=== PATIENT | male | born 1980 | race Hispanic/Latino ===

== ENCOUNTER 2019-06-23 19:46 | Observation (INO) | payer BC, SELFPAY ==
--- NOTE | 2019-06-23 21:09 | PDOC.FPRHP ---
- History of Present Illness Chief Complaint: Chest Pain History of Present Illness: Mark Caal is a 38 yo direct admit with PMH significant for HTN, DM, HLD, and no history of cardiac workup presented to the ED with chest pain on exertion. He states it did not alleviate through the day so he came in for evaluation. Patient reports chest pain is located substernally with radiation to left arm. Comes and goes. Last seconds to minutes. Has occurred with activity, rest, and while eating today. Pressure-type pain. Not reproducible to the same extent with palpation to chest. Had a similar episode in the past but was told it was stress related. Pain initially started at work today. 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 Associated symptoms include fatigue, SOB, dizziness , nausea, headache, and sweating (but patient not sure if this was in relation to his working conditions). Patient also reports abdominal pain and diarrhea recently since restarting metformin. Friend in room reports he has been complaining of not feeling good all week with high sugars and blurring vision. Initially was seen at outside facility on Thursday due to hyperglycemia and dehydration. Patient has been off insulin due to his rx running out. At urgent care visit thursday provided with medications for HTN, HLD, and DM since he is currently without a physician. No prior hospitalizations. ED Course: ED: Transdermal nitro, full ASA, 1L NS In the ED the intial trops were negative, EKG did not reveal STEMI but showed non-specific changes and sinus tach. Asp, nitro paste were initiated which resolved the pain. Heart score was noted at 3. - Allergies/Adverse Reactions Allergies Allergy/AdvReac Type Severity Reaction Status Date / Time No Known Allergies Allergy Verified 06/23/19 21:32 - Home Medications Medication Instructions Recorded Confirmed Type Atorvastatin Calcium 40 mg PO DAILY 06/23/19 06/23/19 History Lisinopril 10 mg PO DAILY 06/23/19 06/23/19 History glipiZIDE [Glipizide] 10 mg PO BID 06/23/19 06/23/19 History metFORMIN HCl [Metformin HCl] 1,000 mg PO BID 06/23/19 06/23/19 History - History PMHx: HTN, DM, HLD PSHx: None FHx: Mother: DM. Father: Parkinson's disease Social: Denies tobacco currently (former smoker, 1ppd x 18 years, stopped 2 years ago), alcohol, and drug use. - Review of Systems General: reports: fatigue. denies: fever/chills, weight/appetite/sleep changes Eyes: reports: vision changes. denies: eye pain ENT: denies: nasal congestion, rhinorrhea Respiratory: reports: shortness of breath, exercise intolerance. denies: cough , congestion Cardiovascular: reports: chest pain, edema. denies: palpitation Gastrointestinal: reports: nausea, diarrhea Skin: denies: lesions Musculoskeletal: reports: swelling Neurological: reports: weakness, other (Headache) - Vital signs HR: 103, BP: 128/87, 97% on RA -initial BP 159/100, HR 120 - Physical Exam Constitutional: NAD, awake, alert and oriented, well developed HEENT: normocephalic and atraumatic, EOMI Neck: supple, no JVD Chest: no-tender to palpation Heart: RRR, normal S1/S2, no murmurs/rubs/gallops, pulses present, no edema Lungs: CTAB, no respiratory distress, good air movement, no rales/rhonchi, no wheezing Abdomen: soft, non-tender, bowel sounds present Musculoskeletal: normal structure, normal tone, ROM grossly normal Neurological: no focal deficit Skin: no rash/lesions, capillary refill <2 seconds, no jaundice Heme/Lymphatic: no unusual bruising or bleeding Psychiatric: normal mood and affect, other (Pt seems to have mild cognitive delay, having difficulty answering complex questions) FMR H&P: Results - Labs Result Diagrams: 06/24/19 05:26 Lab results: CXR: no acute process Na 140, K 4.3 gluc 288, BUN 14, Cr 0.9 UA negative WBC 7.7, Hgb 13.9, Hct 39.0 EKG: Sinus tachycardia, incomplete RBBB FMR H&P: A/P - Problem List (1) Atypical chest pain Current Visit: Yes Status: Acute Code(s): R07.89 - OTHER CHEST PAIN (2) Diabetes type 2, uncontrolled Current Visit: Yes Status: Acute Code(s): E11.65 - TYPE 2 DIABETES MELLITUS WITH HYPERGLYCEMIA Qualifiers: Glycemic state: with hyperglycemia Qualified Code(s): E11.65 - Type 2 diabetes mellitus with hyperglycemia (3) Hypercholesterolemia Current Visit: Yes Status: Acute Code(s): E78.00 - PURE HYPERCHOLESTEROLEMIA , UNSPECIFIED (4) Hypertension Current Visit: Yes Status: Acute Code(s): I10 - ESSENTIAL (PRIMARY) HYPERTENSION - Plan Chest Pain - ACS vs stable angina vs musculoskeletal Risk factors: HTN, HLD, DM -Admit to tele obs for CP r/0 -Initial troponin at [facility] negative, continue to trend here -Heart score of 4 -No PCP so will risk stratify with FLP and HbA1c -Exercise stress tomorrow -NPO at midnight -PRN nitro available Diabetes Type II - uncontrolled, insulin dependent -No recent A1c, ordered for am labs -Resume insulin with Levemir 10 units HS tonight -Cut back metformin to 500 BID due to recent GI symptoms -POC glucose checks Hypertension -Normotensive upon arrival -Started on Lisinopril 10mg daily 4 days ago - continue Hypercholesterolemia -No recent FLP so ordered for am labs -Continue atorvastatin started 4 days ago Condition: Stable Fluids: NS 100ml/hr VTE: None Dispo: Admit to tele obs for cardiac r/o, expect LOS < 48 hrs Code status: Full FMR H&P: Upper Level - Pertinent history Mark Caal is a 38 yo with PMH significant for HTN, DM, HLD who presented to the ED with chest pain on exertion. He states it did not alleviate through the day so he came in for evaluation. Patient reports chest pain located substernally with radiation to left arm which comes and goes. Has occurred with activity, rest, and while eating today. Pressure-type pain which is not reproducible to the same extent with palpation to chest. Patient states he had a similar episode in the past but was told it was stress related. 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 Associated symptoms include fatigue, SOB, dizziness , nausea, headache, and sweating which may be related to working conditions. Patient also reports abdominal pain and diarrhea since restarting metformin. Friend in room reports he has been complaining of not feeling good all week with high sugars and blurry vision. Patient has had no prior cardiac workup. - Pertinent findings General: Alert and oriented x3. NAD. HEENT: EOMI. Card: RRR. No murmurs. Resp: CTA, no acute respiratory distress Abdomen: Soft, nontender, bowel sounds present Ext: No edema. Pulses present. - Plan Date/Time: 06/23/192108 I, Denisse Cruz, have evaluated this patient and agree with findings/plan as outlined by purchasing intern resident. Pertinent changes/additions are listed here. Typical chest pain: - NPO at midnight - Stress test in AM - Risk stratification labs: HgA1c, FLP, Mg, P, TSH DM type II - Uncontrolled - HgA1c pending - Likely will need to be on insulin given recent urgent care visits for hyperglycemia - ACHS accuchecks - DM educator HLD - Continue high intensity statin HTN - Continue home medications DVT PPX: SCD's Code status: Full code Dispo: Obs on telemetry. Addendum - Attending - Attending Attestation Date/Time: 06/23/192148 I personally evaluated the patient and discussed the management with Dr. Bey I agree with the History, Examination, Assessment and Plan documented above with any addition or exceptions noted below. 38 yo male with hx of untreated/uncontrolled HTN, HLD, DM, and BMI 33 is transferred from outside facility for evaluation of chest pain and other subjective symptoms. Patient with previous hx of chest pain/discomfort. Reports being dx as "stress related." Patient reports over the past week has not been feeling like himself. He has been to urgent care twice this week. Has been dx with hyperglycemia and dehydration. On Thursday was restarted on some of his medications. Over the past day has started to experience chest pain. Located substernal radiates to left-side and along left arm. Pressure type pain. Associated with fatigue, SOB, dizziness, nausea, headache, and sweating (but patient not sure if this was in relation to his working conditions). Pain comes and goes. Last seconds to minutes. Has occurred with activity, rest, and eating. Denies family hx. Was a former smoker. Works as a community assistant in harsh conditions. Previously denies experiencing chest pain at work. Vitals, labs, imaging, and medical record reviewed. Agree with PE as documented. Will place patient on tele obs overnight. Rule out ischemia. Heart score of 3, therefore risk for ischemia present. Based on HPI does not appear to be obstructive in nature. Will perform exercise stress in AM. Modify risk factors. Would continue ACEI, statin, metformin. Would benefit from GLP1 instead of insulin due to BMI and other risk factors. Likely with undx VAMSI. Needs PCP. DM education prior to d/c. Pneumovac prior to d/c/. Needs eye exam outpatient. Discussed importance of adequate hydration in the heat of summer. Will continue IVFs overnight to help continue with adequate hydration. Audi
[2019-06-23 21:33] VITALS: BMI 33.1
[2019-06-23] MEDS ORDERED: Nitroglycerin 0.4 MG TAB (25 Tab Bottle) PO PRN (22:03)
[2019-06-23] MEDS ORDERED: Ondansetron ODT 4 MG TAB PO PRN (22:20)
[2019-06-23] MEDS ORDERED: Famotidine 20 MG TAB PO PRN (22:20)
[2019-06-23] MEDS ORDERED: Dextrose 5% in Water 1,000 ML IV PRN (22:29)
[2019-06-23] MEDS ORDERED: Dextrose 50% Abboject 50 ML SYRINGE SLOW IVP PRN (22:29)
[2019-06-23] MEDS: Acetaminophen 325 MG TAB PO PRN (22:43)
[2019-06-23] MEDS: Sodium Chloride 0.9% 1,000 ML IV SCH (22:44)
[2019-06-23 23:25] LABS: Troponin I Less than 0.010 ng/mL (< 0.028)
[2019-06-23] MEDS ORDERED: HumaLOG 300 UNITS/3 ML VIAL SC PRN ×2 (23:47)
[2019-06-24 02:16] LABS: Troponin I Less than 0.010 ng/mL (< 0.028)
[2019-06-24] MEDS: Acetaminophen 325 MG TAB PO PRN (04:29)
[2019-06-24 06:08] LABS: Anion Gap 10 mmol/L (10-20); BUN (Urea Nitrogen) 12 mg/dL (8.9-20.6); Calc. Creatinine Clearance 160 mL/min (70-130); Carbon Dioxide 25 mmol/L (22-29); Cardiac Risk 4.7 (Less than 4.5); Chloride 104 mmol/L (98-107); Cholesterol 113 mg/dl (< 200 Desired); Estimated GFR-MDRD Greater than 90; Glucose 227 mg/dL (70-105); HDL Cholesterol 24 mg/dL (>60 Neg Risk); LDL Cholesterol, Calculated 40 mg/dL; Magnesium 1.5 mg/dL (1.6-2.6); Potassium 4.3 mmol/L (3.5-5.1); Sodium 135 mmol/L (136-145); Triglycerides 246 mg/dL (Less than 150)
[2019-06-24 06:09] LABS: Hemoglobin A1c 12.1 % (4.0-6.0)
--- NOTE | 2019-06-24 06:17 | PDOC.FM ---
- Subjective Subjective: Patient resting comfortably in bed this morning. Reports that he Denies chest pain, SOB, abdominal pain, diarrhea/constipation. - Objective Vital Signs & Weight: Vital Signs (12 hours) Temp Pulse Resp BP BP Pulse Ox 06/24/19 04:29 97.6 F 95 18 111/71 98 06/23/19 23:41 97.6 F 97 16 122/72 97 06/23/19 22:03 97 06/23/19 21:05 98.0 F 106 H 16 128/86 98 Weight Weight 98.838 kg I&O: 06/22/19 06/23/19 06/24/19 06:59 06:59 06:59 Intake Total 480 Balance 480 Result Diagrams: 06/24/19 05:26 EKG Reviewed by me: Yes (sinus 90s-100s) Phys Exam - Physical Examination Constitutional: NAD HEENT: moist MMs Neck: supple Respiratory: clear to auscultation bilateral Cardiovascular: RRR, no significant murmur, no rub Gastrointestinal: soft, non-tender, no distention, positive bowel sounds Musculoskeletal: no edema, pulses present Neurological: moves all 4 limbs Lymphatic: no nodes Psychiatric: normal affect Skin: no rash Dx/Plan (1) Atypical chest pain Code(s): R07.89 - OTHER CHEST PAIN Status: Acute (2) Diabetes type 2, uncontrolled Code(s): E11.65 - TYPE 2 DIABETES MELLITUS WITH HYPERGLYCEMIA Status: Acute Qualifiers: Glycemic state: with hyperglycemia Qualified Code(s): E11.65 - Type 2 diabetes mellitus with hyperglycemia (3) Hypercholesterolemia Code(s): E78.00 - PURE HYPERCHOLESTEROLEMIA, UNSPECIFIED Status: Acute (4) Hypertension Code(s): I10 - ESSENTIAL (PRIMARY) HYPERTENSION Status: Acute (5) Hypertriglyceridemia Code(s): E78.1 - PURE HYPERGLYCERIDEMIA Status: Acute - Plan Plan: Chest Pain - ACS vs stable angina vs musculoskeletal Risk factors: HTN, HLD, DM -tele obs for CP r/0 -Initial troponin at [facility] negative, trops here <0.01 x 2 -Heart score of 4 in ED -Total Chol 113, LDL 40, A1C 12.1 -Exercise stress today, pending -NPO at midnight last night -PRN nitro available -ASA, statin Diabetes Type II - uncontrolled, insulin dependent -A1C 12.1 -Didn't receive Levemir 10 units HS last night, receive tonight if not discharged -Metformin to 500 BID due to recent GI symptoms -POC glucose checks -ISS -Diabetes education Hypertension -120s/70s-80s overnight, normal sinus -Started on Lisinopril 10mg daily 4 days ago - continue Hypercholesterolemia/hypertrigliceridemia -Total cholesterol 113, LDL 40 -Continue atorvastatin Condition: Stable Fluids: NS 100ml/hr VTE: None Dispo: tele obs for cardiac r/o, expect LOS < 48 hrs Code status: Full Addendum - Attending - Attending Attestation Date/Time: 06/24/19 [id number] I personally evaluated the patient and discussed the management with Dr. Hough. I agree with the History, Examination, Assessment and Plan documented above with any addition or exceptions noted below. Chest pain is resolved. He is having a stress test and if negative will d/c home.
[2019-06-24] MEDS ORDERED: metFORMIN 500 MG TAB PO SCH (08:00)
[2019-06-24] MEDS: Sodium Chloride 0.9% 1,000 ML IV SCH ×2 (08:09→12:07)
[2019-06-24] MEDS ORDERED: Dextrose 5% in Water 1,000 ML IV PRN (08:49)
[2019-06-24] MEDS ORDERED: Dextrose 50% Abboject 50 ML SYRINGE SLOW IVP PRN (08:49)
[2019-06-24] MEDS ORDERED: HumaLOG 300 UNITS/3 ML VIAL SC PRN (08:54)
[2019-06-24] MEDS ORDERED: Lisinopril 10 MG TAB PO SCH (09:00)
[2019-06-24] MEDS ORDERED: Atorvastatin Calcium 40 MG TAB PO SCH (09:00)
[2019-06-24] MEDS ORDERED: Insulin Glargine 10 UNITS in Pre-Filled Syringe 1 EACH SC SCH ×2 (09:00→21:00)
[2019-06-24] MEDS ORDERED: Aspirin 81 mg Enteric Coated Tablet PO SCH (11:00)
--- NOTE | 2019-06-24 11:08 | NM ---
EXAM: CARDIAC SPECT HISTORY: Chest pain, hypertension, diabetes, dyslipidemia, smoking TECHNIQUE: A myocardial perfusion scan was performed using the single isotope 1 day protocol with karie hnetium 99m sestamibi. [10 mCi] was injected intravenously for the rest exam followed by 30 mCi for the stress study. Exercise stress was monitored and interpreted by Magdalene Sood, nurse practitioner FINDINGS: Homogeneous tracer distribution is seen in the myocardial segments on stress and rest image s without fixed or reversible defects. Gated SPECT LVEF: 64% Wall motion exam: Normal IMPRESSION: Normal myocardial perfusion scan
[2019-06-24 12:07] VITALS: BP 145/81; TEMP 97.7
--- NOTE | 2019-06-25 05:33 | DIS ---
DATE OF ADMISSION: 06/23/2019 DATE OF DISCHARGE: 06/24/2019 ADMITTING RESIDENT: Michael Ramos DO. ADMITTING ATTENDING: Rita Conroy MD. DISCHARGE RESIDENT: Lillian Hough MD. DISCHARGE ATTENDING: Dayanara Cabezas MD. CONSULTS: None. PROCEDURES: Stress test, normal. PRIMARY DIAGNOSES: Microvascular angina, hypertension, hyperlipidemia, uncontrolled type 2 diabetes. SECONDARY DIAGNOSES: None. DISCHARGE MEDICATIONS: 1. Aspirin 81 mg p.o. daily. 2. Atorvastatin 40 mg p.o. daily. 3. Glipizide 10 mg p.o. b.i.d. 4. Lisinopril 10 mg p.o. daily. 5. Lantus 10 units subcu q.a.m. 6. Metformin 1000 mg p.o. b.i.d. DISCONTINUED MEDICATIONS: None. 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 The patient also endorsed fatigue, shortness of breath, dizziness, nausea, headache , and sweating. He was a direct admit from the [facility] ED with a HEART score of 4. His original troponin at [facility] was negative, and his next 2 were also negative. His EKG showed sinus tachycardia with incomplete right bundle branch block. His chest x-ray showed no acute process. He had a stress test on 06/24, which was negative. He was recently seen at an urgent care on Thursday due to symptoms of hyperglycemia and dehydration. His type 2 diabetes was previously treated with insulin, but he has not been taking it for the last 3 months, because he ran out. The urgent care provided him with medications for hypertension, hyperlipidemia, and diabetes. His A1c in the hospital was 12.1. He was given 10 units of Lantus and put on a sliding scale. His highest glucose of 386 was around lunch time. On lisinopril , his vital signs were stable throughout his hospital stay. Diabetes management was discussed thoroughly with the patient, he states he has injected insulin before and feels comfortable. He understands that we are discharging him with Lantus and he will need to follow up with the primary care provider next week to have short- acting insulin started. He agrees to keeping a blood glucose log until his next appointment. He denies any chest pain throughout his hospitalization and was stable upon discharge. DISPOSITION: Stable. DISCHARGE INSTRUCTIONS: 1. Location: Home. 2. Diet: Heart healthy, carb controlled. 3. Activity: As tolerated. Drink water frequently and take breaks while working out in the heat. 4. Followup: Follow up with PCP within 3 to 5 days to evaluate blood glucose log and insulin regimen. It was discussed with the patient to keep a blood glucose log in the next several days so that short-acting insulin could be prescribed by his primary care physician. Job ID: [id number] [facility]
[2019-06-25] MEDS ORDERED: Aspirin 81 mg Enteric Coated Tablet PO SCH (09:00)
== END 2019-06-24 16:29 | disposition home or self-care (01) ==
LOC: 2SW 21:01
PROVIDERS: ADMIT Student in an Organized Health Care Education/Training Program; ATTEND Student in an Organized Health Care Education/Training Program
DX: I20.9 Angina pectoris, unspecified (principal); E11.65 Type 2 diabetes mellitus with hyperglycemia; I10 Essential (primary) hypertension; E78.00 Pure hypercholesterolemia, unspecified; E78.1 Pure hyperglyceridemia; I45.10 Unspecified right bundle-branch block; R10.9 Unspecified abdominal pain; R19.7 Diarrhea, unspecified; E86.0 Dehydration; Z87.891 Personal history of nicotine dependence; Z79.84 Long term (current) use of oral hypoglycemic drugs; Z79.899 Other long term (current) drug therapy
CPT/HCPCS: 36415; 36416; 78452; 80048; 80061; 82550; 83036; 83735; 84443; 84484; 93017; 94760; 96360; 96361; A9500; G0378; J1815

== ENCOUNTER 2019-09-26 10:57 | Emergency (ER) | payer BC ==
[2019-09-26 11:45] LABS: #Basophils 0.1 thou/uL (0.0-0.2); #Eosinphils 0.4 thou/uL (0.0-0.7); #Monocytes 0.7 thou/uL (0.11-0.59); #Neutrophils 6.5 thou/uL (1.40-6.50); %Eosinophils 4.2 % (0.0-10.0); %Lymphocytes 20.2 % (21.0-51.0); %Monocytes 7.5 % (0.0-10.0); %Neutrophils 67.1 % (42.0-75.0); Hemoglobin 13.6 g/dL (14.0-18.0); Mean Corpuscular HGB CONC 34.4 g/dL (32.0-36.0); Mean Corpuscular Hemoglobin 31.2 pg (27.0-31.0); Mean Corpuscular Volume 90.8 fL (78.0-98.0); Mean Platelet Volume 8.1 fL (7.4-10.4); Platelet Count 216 thou/uL (130-400); RBC Distribution Width 11.9 % (11.5-14.5); Red Blood Cell (RBC) Count 4.37 mill/uL (4.70-6.10); White Blood Cell (WBC) Count 9.7 thou/uL (4.8-10.8)
[2019-09-26 12:01] LABS: ALT (SGPT) 30 U/L (8-55); AST (SGOT) 19 U/L (5-34); Alkaline Phosphatase 57 U/L (40-110); Anion Gap 12 mmol/L (10-20); BUN (Urea Nitrogen) 17 mg/dL (8.9-20.6); Bilirubin, Total 0.3 mg/dL (0.2-1.2); Calc. Creatinine Clearance 0 mL/min (70-130); Calcium 8.9 mg/dL (7.8-10.44); Carbon Dioxide 26 mmol/L (22-29); Chloride 105 mmol/L (98-107); Estimated GFR-MDRD 66; Globulin 3.4 g/dL (2.4-3.5); Glucose 208 mg/dL (70-105); Lipase 37 U/L (8-78); Potassium 5.1 mmol/L (3.5-5.1); Protein, Total 7.4 g/dL (6.0-8.3); Sodium 138 mmol/L (136-145)
--- NOTE | 2019-09-26 12:33 | CT ---
CT abdomen and pelvis with IV contrast HISTORY: Left upper quadrant pain. FINDINGS: The lung bases are clear. The liver, spleen, kidneys, adrenal glands, and pancreas have a n ormal CT appearance. Appendix is not inflamed. No evidence of bowel obstruction. No free fluid or free air. Urinary bladder is incompletely distended. Nonenlarged lymph nodes are scattered about the left side of the retroperitoneum with subtle strandin g in the adjacent fat. No measuring up to 7 mm short axis diameter. IMPRESSION: Very mild diverticulosis. No evidence of diverticulitis. Slightly prominent but nonenlarged reactive appearing lymph nodes within the left side of the retrope ritoneum. Cause for the suspected inflammation is not evident.
[2019-09-26 14:07] LABS: Troponin I Less than 0.010 ng/mL (< 0.028)
== END 2019-09-26 14:30 | disposition home or self-care (01) ==
LOC: SCSER 10:57
DX: I88.9 Nonspecific lymphadenitis, unspecified (principal); I45.10 Unspecified right bundle-branch block; E11.9 Type 2 diabetes mellitus without complications; F17.210 Nicotine dependence, cigarettes, uncomplicated; Z79.4 Long term (current) use of insulin
CPT/HCPCS: 36415; 74177; 80053; 83690; 84484; 85025; 93005; 96360